=== PATIENT | female | born 2000 | race Caucasian/White ===

== ENCOUNTER 2022-03-15 06:20 | Emergency (ER) | payer MEDICAID ==
[~2022-03-15] VITALS: Ht 157.5 cm; Wt 88.5 kg
[2022-03-15 06:32] VITALS: BP 138/80
--- NOTE | 2022-03-15 06:38 | NUR ---
Patient ambulated to bed 9.
--- NOTE | 2022-03-15 06:42 | NUR ---
Dr. Florentino examining patient.
[2022-03-15] MEDS ORDERED: CETI10SG1 PO (06:58)
[2022-03-15] MEDS ORDERED: FAMO-92 PO (06:58)
[2022-03-15 07:10] VITALS: BP 138/80
--- NOTE | 2022-03-15 07:10 | NUR ---
Patient discharged with v/s stable. Written and verbal after care instructions given and explained. Patient alert, oriented and verbalized understanding of instructions. Ambulatory with steady gait. All questions addressed prior to discharge. ID band removed. Patient advised to follow up with PMD. Rx of ZYRTEC AND PEPCID given. Patient educated on indication of medication including possible reaction and side effects. Opportunity to ask questions provided and answered.
== END 2022-03-15 07:10 | disposition home or self-care (01) ==
LOC: MED 06:20
DX: L50.9 Urticaria, unspecified (principal)
CPT/HCPCS: 99282

== ENCOUNTER 2022-06-01 23:15 | Emergency (ER) | payer MEDICAID, OTHER ==
[~2022-06-01] VITALS: Ht 157.5 cm; Wt 88.9 kg
[~2022-06-01 23:15] MED LIST: CETI10SG1 PO; FAMO-92 PO
[2022-06-01 23:21] VITALS: BP 120/50
--- NOTE | 2022-06-01 23:26 | NUR ---
pt taken to bed 7
--- NOTE | 2022-06-02 00:06 | NUR ---
Pt placed in gown. and pelvic tray a bedside.
--- NOTE | 2022-06-02 00:36 | NUR ---
Female Line Person accompanied female patient for Pelvic Exam.
[2022-06-02] MEDS ORDERED: KETOROLAC 30 MG/ML VIAL IM ONE (00:45)
--- NOTE | 2022-06-02 00:56 | NUR ---
senior technical writer at bedside.
[2022-06-02 01:07] LABS: BASOPHILS # (AUTO) 0.1 K/uL (0.00-0.22); BASOPHILS % (AUTO) 1.1 % (0.0-2.0); EOSINOPHILS # (AUTO) 0.2 K/uL (0-0.4); EOSINOPHILS % (AUTO) 2.7 % (0.0-4.0); HEMATOCRIT 26.5 % (36-48); HEMOGLOBIN 8.6 g/dL (12.0-16.0); LYMPHOCYTES # (AUTO) 3.3 K/uL (2.5-16.5); LYMPHOCYTES % (AUTO) 38.5 % (20.5-51.1); MEAN CORPUSCULAR HEMOGLOBIN 23 pg (27-31); MEAN CORPUSCULAR HGB CONC 32 g/dL (33-37); MEAN CORPUSCULAR VOLUME 71.8 fL (80-94); MONOCYTES # (AUTO) 0.7 K/uL (0.8-1.0); MONOCYTES % (AUTO) 8.1 % (1.7-9.3); NEUTROPHILS # (AUTO) 4.2 K/uL (1.8-7.7); NEUTROPHILS % (AUTO) 49.6 % (42.2-75.2); PLATELET COUNT (AUTO) 333 K/uL (140-450); RED BLOOD CELL COUNT(AUTO) 3.69 MIL/uL (4.20-5.40); RED CELL DISTRIBUTION WIDTH 16.6 % (11.6-13.7); WHITE BLOOD COUNT (AUTO) 8.5 K/uL (4.8-10.8)
--- NOTE | 2022-06-02 01:16 | NUR ---
ULTRASOUND AT [facility]
[2022-06-02 01:21] LABS: ANION GAP 11.3 (8-16); CREATININE 0.8 mg/dL (0.6-1.3); POTASSIUM 3.3 mmol/L (3.5-5.1)
[2022-06-02] MEDS ORDERED: NAPR-54 PO (01:56)
[2022-06-02] MEDS ORDERED: FERR325E14 PO (01:56)
[2022-06-02 02:00] VITALS: BP 112/58
--- NOTE | 2022-06-02 02:00 | NUR ---
Patient discharged with v/s stable. Written and verbal after care instructions given and explained. Patient alert, oriented and verbalized understanding of instructions. Ambulatory with steady gait. All questions addressed prior to discharge. ID band removed. Patient advised to follow up with PMD. Rx of NAPROXEN, FERROUS SULFATE given. Patient educated on indication of medication including possible reaction and side effects. Opportunity to ask questions provided and answered.
== END 2022-06-02 02:00 | disposition home or self-care (01) ==
LOC: MED 23:15
DX: N93.9 Abnormal uterine and vaginal bleeding, unspecified (principal); Z79.899 Other long term (current) drug therapy
CPT/HCPCS: 36415; 76856; 80048; 81025; 85025; 93976; 96372; 99284; J1885; 99283